=== PATIENT | male | born 1945 | race Caucasian/White ===

== ENCOUNTER → 2016-07-16 | Outpatient (CLI) | payer BC ==
[~2016-07-16] MED LIST: AMOX500C3 PO; ASPEC81 PO; BYS5 PO; CMD5 PO; COEN200C17 PO; CYAN1CAP4 PO; DICL1GEL12 TD; FRS/40 PO; LISI-461 PO; LSX40 PO; MAGN400T6 PO; NTRGSL/4 UT; OMEG10007 PO; OXYC-57 PO; POTA20TA16 PO; SIMV20TA2 PO; TRAM-453 PO
[2016-07-16 12:55] LABS: BASO % 0.9 %; BASO ABS # 0.05 K/uL (0-0.2); COMPLETE YES; EOS % 14.7 %; HEMATOCRIT 45.5 % (42-52); LYMPH % 31.7 %; LYMPH ABS # 1.73 K/uL (1.2-3.4); MEAN CELL VOLUME 99.8 fL (80-100); MEAN CORPUSCULAR HEMOGLOBIN 34.2 pg (25-34); MEAN CORPUSCULAR HGB CONC 34.3 g/dl (32-36); MEAN PLATELET VOLUME 10.7 fL (7.4-10.4); MONO % 9.7 %; PLATELET COUNT 157 K/uL (130-400); RED BLOOD COUNT 4.56 M/uL (4.7-6.1); WHITE BLOOD COUNT 5.46 K/uL (4.8-10.8)
[2016-07-16 13:10] LABS: ALT/SGPT 19 U/L (12-78); AST/SGOT 16 U/L (15-37); BLOOD UREA NITROGEN 14 mg/dl (7-18); CARBON DIOXIDE 30 mmol/L (21-32); CHLORIDE 108 mmol/L (98-107); CREATININE 0.76 mg/dl (0.60-1.40); GLUCOSE 86 mg/dl (70-99); MAGNESIUM 2.4 mg/dl (1.8-2.4); POTASSIUM 4.2 mmol/L (3.5-5.1); SODIUM 143 mmol/L (136-145); TRIGLYCERIDES 87 mg/dl (0-150); VERY LOW DENSITY LIPOPROT CALC 17 mg/dl
[2016-07-16 13:18] LABS: ALB/GLOB RATIO 1.1 (0.9-2); ALKALINE PHOSPHATASE 66 U/L (45-117); CHOLESTEROL 122 mg/dl (0-200); CHOLESTEROL/HDL RATIO 3.5; HDL CHOLESTEROL 35 mg/dl; LDL CHOLESTEROL CALCULATED 70 mg/dl
== END | disposition home or self-care (01) ==
LOC: C.LABPVFM 10:26
PROVIDERS: ATTEND Nurse Practitioner Family
DX: E78.00 Pure hypercholesterolemia, unspecified (principal); I25.10 Atherosclerotic heart disease of native coronary artery without angina pectoris; I48.91 Unspecified atrial fibrillation; I63.9 Cerebral infarction, unspecified

== ENCOUNTER → 2017-01-26 | Outpatient (CLI) | payer BC ==
[2017-01-26 12:26] LABS: BASO % 0.8 %; BASO ABS # 0.05 K/uL (0-0.2); COMPLETE YES; EOS % 9.9 %; HEMATOCRIT 46.8 % (42-52); IG% 0.2 %; LYMPH % 33.2 %; LYMPH ABS # 2.01 K/uL (1.2-3.4); MEAN CELL VOLUME 101.5 fL (80-100); MEAN CORPUSCULAR HEMOGLOBIN 34.7 pg (25-34); MEAN CORPUSCULAR HGB CONC 34.2 g/dl (32-36); MEAN PLATELET VOLUME 10.6 fL (7.4-10.4); MONO % 10.2 %; NEUT % 45.7 %; PLATELET COUNT 157 K/uL (130-400); RED BLOOD COUNT 4.61 M/uL (4.7-6.1); WHITE BLOOD COUNT 6.05 K/uL (4.8-10.8)
[2017-01-26 13:02] LABS: ALT/SGPT 19 U/L (12-78); BLOOD UREA NITROGEN 16 mg/dl (7-18); BUN/CREATININE RATIO 20.5 (10-20); CALCIUM 9.3 mg/dl (8.5-10.1); CARBON DIOXIDE 29 mmol/L (21-32); CHLORIDE 106 mmol/L (98-107); CHOLESTEROL 127 mg/dl (0-200); CREATININE 0.77 mg/dl (0.60-1.40); GLUCOSE 86 mg/dl (70-99); POTASSIUM 4.5 mmol/L (3.5-5.1); SODIUM 138 mmol/L (136-145); TRIGLYCERIDES 98 mg/dl (0-150); VERY LOW DENSITY LIPOPROT CALC 20 mg/dl
[2017-01-26 13:05] LABS: ALB/GLOB RATIO 0.9 (0.9-2); ALKALINE PHOSPHATASE 71 U/L (45-117); AST/SGOT 19 U/L (15-37); CHOLESTEROL/HDL RATIO 3.3; HDL CHOLESTEROL 39 mg/dl; LDL CHOLESTEROL CALCULATED 68 mg/dl
== END | disposition home or self-care (01) ==
LOC: C.LABPVFM 10:35
PROVIDERS: ATTEND Nurse Practitioner Family
DX: E78.00 Pure hypercholesterolemia, unspecified (principal); I25.10 Atherosclerotic heart disease of native coronary artery without angina pectoris; I48.91 Unspecified atrial fibrillation; I50.42 Chronic combined systolic (congestive) and diastolic (congestive) heart failure; I63.9 Cerebral infarction, unspecified; I25.5 Ischemic cardiomyopathy

== ENCOUNTER → 2017-01-30 | Outpatient (CLI) | payer BC ==
--- NOTE | 2017-01-30 13:28 | DIAGNOSTIC IMAGING REPORT ---
CAROTID DOPPLER NECK ART HISTORY: Mental status change I25.10 CAD (coronary artery disease)[id number] COMPARISON: 10/29/2014 TECHNIQUE: Real-time, grayscale, and color Doppler sonography of the carotid arteries was performed. Imaging reviewed in the transverse and longitudinal planes. All measurements were calculated based on NASCET criteria. FINDINGS: Antegrade flow is seen in the bilateral vertebral arteries. The brachial pressures are hemodynamically similar. Mild plaque formation bilaterally The peak systolic velocity within the right ICA is 69. The right systolic ratio is 0.9. The peak systolic velocity within the left ICA is 65. The left systolic ratio is 1.0. IMPRESSION: Mild plaque formation bilaterally. No significant stenotic process. No change from the prior exam. The above report was generated using voice recognition software. It may contain grammatical, syntax or spelling errors. Electronically signed by: Raul Beckham M.D. 01/30/2017 1:27 PM Dictated Date/Time: 01/30/2017 1:26 PM
== END | disposition home or self-care (01) ==
LOC: C.ULTR 12:22
PROVIDERS: ATTEND Surgery
DX: E78.00 Pure hypercholesterolemia, unspecified (principal); I25.10 Atherosclerotic heart disease of native coronary artery without angina pectoris; I63.9 Cerebral infarction, unspecified; I25.5 Ischemic cardiomyopathy

== ENCOUNTER → 2017-05-19 | Outpatient (CLI) | payer BC ==
[~2017-05-19] MED LIST changes: +AMIO200T4 PO; +ATOR10TA82 PO; +BUSP5TAB59 PO; -BYS5 PO; -CMD5 PO; -COEN200C17 PO; -CYAN1CAP4 PO; -DICL1GEL12 TD; +ENOX40IN SQ; +LEVO-17 PO; -LSX40 PO; -MAGN400T6 PO; +METO25TA3 PO; +NEBI10TA2 PO; -NTRGSL/4 UT; -OXYC-57 PO; +SENN-61 PO; -TRAM-453 PO; +WARF5TAB90 PO
--- NOTE | 2017-05-19 17:14 | DIAGNOSTIC IMAGING REPORT ---
R KNEE 3 VIEWS CLINICAL HISTORY: 72 years-old Male presenting with R KNEE PAIN, GAIT DISTURBANCE. TECHNIQUE: Frontal and lateral views the right knee were obtained. COMPARISON: 12/16/2013. FINDINGS: Intramedullary sandra with interlocking screw fixation of the tibia as on prior exam. Chronic appearing fracture of the proximal fibular diaphysis with incomplete bony bridging. Osteopenia. Tricompartmental degenerative changes of the knee with severe medial joint space loss and subchondral sclerosis. Moderate knee joint effusion noted. Old screw tracks suggested through the distal femoral metaphysis. Exuberant periosteal reaction of the distal femoral diaphysis, partially visualized. This appears to be chronic as well, noted on the prior exam. No acute fracture is evident. IMPRESSION: 1. Chronic posttraumatic deformities of the femur, tibia, and fibula. 2. 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 3. Osteopenia. 4. Moderate knee joint effusion. 5. No acute osseous injury. Electronically signed by: Juan Pablo Em M.D. 05/19/2017 5:13 PM Dictated Date/Time: 05/19/2017 5:11 PM
== END | disposition home or self-care (01) ==
LOC: C.RAD 16:32
PROVIDERS: ATTEND Physical Medicine & Rehabilitation
DX: R26.9 Unspecified abnormalities of gait and mobility (principal); M21.851 Other specified acquired deformities of right thigh; M21.861 Other specified acquired deformities of right lower leg; M85.861 Other specified disorders of bone density and structure, right lower leg; M25.461 Effusion, right knee

== ENCOUNTER → 2017-08-21 | Outpatient (CLI) | payer BC ==
[~2017-08-21] MED LIST changes: -AMIO200T4 PO; -AMOX500C3 PO; -ASPEC81 PO; +ASPI-320 PO; -ENOX40IN SQ; -LEVO-17 PO; -METO25TA3 PO; +POTA-639 PO; -POTA20TA16 PO
[2017-08-21 12:43] LABS: BASO % 0.5 %; BASO ABS # 0.03 K/uL (0-0.2); EOS % 7.2 %; EOS ABS # 0.41 K/uL (0-0.5); HEMOGLOBIN 14.6 g/dL (14.0-18.0); IG# 0.01 K/uL (0.00-0.02); LYMPH % 43.2 %; LYMPH ABS # 2.46 K/uL (1.2-3.4); MEAN CELL VOLUME 98.4 fL (80-100); MEAN CORPUSCULAR HEMOGLOBIN 32.7 pg (25-34); MEAN CORPUSCULAR HGB CONC 33.2 g/dl (32-36); MEAN PLATELET VOLUME 10.3 fL (7.4-10.4); MONO % 9.8 %; MONO ABS # 0.56 K/uL (0.11-0.59); NEUT % 39.1 %; NEUT ABS # 2.22 K/uL (1.4-6.5); PLATELET COUNT 174 K/uL (130-400); RED CELL DISTRIBUTION WIDTH CV 14.7 % (11.5-14.5); RED CELL DISTRIBUTION WIDTH SD 53.1 fL (36.4-46.3); WHITE BLOOD COUNT 5.69 K/uL (4.8-10.8)
[2017-08-21 13:02] LABS: ALBUMIN 3.6 gm/dl (3.4-5.0); ALT/SGPT 18 U/L (12-78); AST/SGOT 20 U/L (15-37); BLOOD UREA NITROGEN 19 mg/dl (7-18); CALCIUM 9.1 mg/dl (8.5-10.1); CARBON DIOXIDE 29 mmol/L (21-32); CREATININE 0.87 mg/dl (0.60-1.40); GLUCOSE 94 mg/dl (70-99); POTASSIUM 4.1 mmol/L (3.5-5.1); SODIUM 139 mmol/L (136-145)
[2017-08-21 13:06] LABS: ALKALINE PHOSPHATASE 81 U/L (45-117); CHOLESTEROL 107 mg/dl (0-200); LDL CHOLESTEROL CALCULATED 56 mg/dl; TOTAL PROTEIN 7.5 gm/dl (6.4-8.2)
== END | disposition home or self-care (01) ==
LOC: C.LABPVFM 10:07
PROVIDERS: ATTEND Nurse Practitioner Family
DX: Z51.81 Encounter for therapeutic drug level monitoring (principal); E78.00 Pure hypercholesterolemia, unspecified; I25.10 Atherosclerotic heart disease of native coronary artery without angina pectoris; I48.91 Unspecified atrial fibrillation; I25.5 Ischemic cardiomyopathy; E66.3 Overweight; Z79.01 Long term (current) use of anticoagulants